=== PATIENT | female | born 1990 | race Caucasian/White ===

== ENCOUNTER 2017-02-12 11:25 | Observation (INO) | payer BC ==
[2017-02-12] VITALS (7 sets, daily range): BP systolic 117–132; BP diastolic 63–77; PULSE 78–92; RESP 16; TEMP 97.3; Ht 157.5 cm; Wt 114.6 kg
[~2017-02-12] VITALS: Ht 157.5 cm; Wt 114.6 kg
[~2017-02-12 11:25] MED LIST: PREN1TAB73 PO
[2017-02-12] MEDS ORDERED: LIDOCAINE 1% (10mg/ml) 2ml SDV ID PRN (12:00)
[2017-02-12 12:27] LABS: BASOPHILS % (AUTO) 0.1 % (0-2); EOSINOPHILS # (AUTO) 0.1 T/MM3 (0-0.5); HCT - HEMATOCRIT 35.6 % (36-46); HGB - HEMOGLOBIN 11.8 GM/DL (12-16); IMMATURE GRANULOCYTE # (AUTO) 0.02 T/MM3 (0.00-0.03); IMMATURE GRANULOCYTE % (AUTO) 0.2 % (0.0-0.5); LYMPHOCYTES # (AUTO) 1.8 T/MM3 (1-4.8); LYMPHOCYTES % (AUTO) 20.6 % (23-45); MEAN CORPUSCULAR HGB 29.6 UUG (26-34); MEAN CORPUSCULAR HGB CONC(MCHC 33.1 GM/DL (31-37); MEAN CORPUSCULAR VOLUME 89.2 UM3 (80-100); MEAN PLATELET VOLUME 9.9 UM3 (9.4-12.4); MONOCYTES # (AUTO) 0.5 T/MM3 (0-0.8); MONOCYTES % (AUTO) 5.9 % (0-9.0); NEUTROPHILS #(AUTO)-ABSOLUTE 6.4 T/MM3 (1.8-7.7); NEUTROPHILS % (AUTO) 72.2 % (33-66); RED BLOOD COUNT 3.99 M/MM3 (4.00-5.20); WBC - WHITE BLOOD COUNT 8.8 T/MM3 (4.5-11.0)
[2017-02-12 12:36] LABS: ALBUMIN 3.6 G/DL (3.5-5.0); ALBUMIN/GLOBULIN RATIO 1.2 RATIO (1.1-2.2); ALKALINE PHOSPHATASE 85 U/L (38-126); ALT (SGPT) 30 U/L (9-52); ANION GAP 14 MEQ/L (5-15); AST (SGOT) 22 U/L (14-36); BUN/CREATININE RATIO 22 RATIO (6-26); CALCIUM 9.5 MG/DL (8.4-10.2); CHLORIDE 108 MEQ/L (98-107); CO2 - CARBON DIOXIDE 20 MEQ/L (22-30); CREATININE 0.5 MG/DL (0.7-1.2); GLOMERULAR FILTRATION RATE 147; GLUCOSE 85 MG/DL (65-110); POTASSIUM 4.1 MEQ/L (3.6-5); SODIUM 142 MEQ/L (134-144); TOTAL PROTEIN 6.7 G/DL (6.3-8.2)
[2017-02-12] MEDS ORDERED: ACET-2321 PO (12:39)
[2017-02-12] MEDS ORDERED: HYDROCODONE/APAP 5 mg/325 mg TABLET PO ONE (13:30)
[2017-02-12] MEDS ORDERED: CYCLOBENZAPRINE 5 MG TABLET PO ONE (15:00)
== END 2017-02-12 15:35 | disposition home or self-care (01) ==
LOC: MC 11:25
PROVIDERS: ADMIT Obstetrics & Gynecology; ATTEND Obstetrics & Gynecology
DX: O26.893 Other specified pregnancy related conditions, third trimester (principal); R03.0 Elevated blood-pressure reading, without diagnosis of hypertension; Z3A.37 37 weeks gestation of pregnancy
CPT/HCPCS: 80053; 85025; 86850; 86870; 86900; 86901; 99218

== ENCOUNTER 2017-02-19 10:03 | Inpatient (IN) | payer BC, MEDICAID ==
[~2017-02-19] VITALS: Ht 157.5 cm; Wt 113.2 kg
[~2017-02-19 10:03] MED LIST changes: +ACET-2321 PO
--- OUTSIDE RECORDS SUMMARY | 2017-02-19 10:29 | XMS REPORT | Continuity of Care Document ---
Author Author [facility] Organization [facility] Address Unknown Phone Unavailable Support Name Relationship Address Phone MASON RICHARDS MD Caregiver [address] [place] [address] Unavailable MASON RICHARDS MD Caregiver [address] [place] [address] Unavailable PATEL GONZALEZ DO Caregiver Unknown Unavailable DAISY SOSA Next Of Kin [address] [place] [address] C Insurance Providers Guarantor Filiberto Sosa Address [address] [place] [address] Email DIRECT ADMIT Payer [facility] Policy Number [id number] Subscriber's Name Filiberto Sosa Relationship 18 Self Group Number [id number] Advance Directives Directive Response Recorded Date/Time Ordered Resuscitation Status Full Code 02/12/17 11:51am Resuscitation Documents on File No 02/12/17 12:30pm DPOA for Healthcare Only No 02/12/17 12:30pm Living Will No 02/12/17 12:30pm Problems Active Problems Medical Problem Onset Date Status Threatened miscarriage in early Unknown Acute Medications Current Home Medications Medication Dose Units Route Directions Days Qty Instructions Start Date Acetaminophen (Tylenol) 325 Mg Tablet 1-2 Tab Oral Four Times Daily 60 Tablet 02/12/17 Pnv95/Ferrous Fumarate/Fa ( Tablet) 1 Each Tablet 1 Tab Oral Daily 02/11/17 Past Home Medications Medication Directions Ordered Status Hydrocodone Bit/Acetaminophen (Lortab 10) 1 Udtab Tablet, 1 Mg Oral As Needed 05/24/10 Discontinued Hydrocodone/Acetaminophen ([place] 5-325 Tablet) 1 Each Tablet, 1 Tab Oral Every 6 Hours as needed for Pain 01/30/16 Discontinued None , 06/01/09 Discontinued Ondansetron (Zofran Odt) 4 Mg Tab.rapdis, 4 Mg Oral Q8h @ 0100/0900/1700 for Nausea &/Or Vomiting 01/30/16 Discontinued P-Ephed Sul/Loratadine (Claritin-D 12 Hour) 1 Tab.sr .12 H Tablet, 1 Tab.sr Oral Daily 06/05/13 Discontinued , 05/24/10 Discontinued Social History Social History Problem Response Recorded Date/Time Onset Date Status Reason for Hospitalization with increased BP 02/12/2017 3:07pm Not Applicable Not Applicable Hx Substance Use No 02/11/2017 9:07am Not Applicable Not Applicable Hx Alcohol Use No 01/30/2016 4:58pm Not Applicable Not Applicable Has the pt used tobacco in the last 12 months No 02/12/2017 12:35pm Not Applicable Not Applicable Tobacco Usage none 01/31/2016 12:38am Not Applicable Not Applicable Query Response Start Date Stop Date Smoking Status Former smoker Hospital Discharge Instructions Instructions: Care Instructions: I was in the hospital because (patient own words): high blood pressure and headache Discharge Diet: regular Discharge Activity: Limited activity. Rest. No screens with headache, such as TV and phone. Follow Up Appointments: Call for an appointment on , February 14, [address] Richards Pending Lab / Results: No Pending Lab Patient Instructions: May use heat pack on neck or muscle rubs to neck Expected Signs/Symptoms: per dismissal instructions Notify Physician If: per dismissal instructions During Business Hours:: Please call the physician's office at [phone] After Business Hours:: Please call [phone] and have the feather drying machine operator page the physician. Pain Management/Treatment: may continue Tylenol Wound/Incision Care: none Condition at time of discharge: Good Plan of Care Discharge Date 02/12/17 3:35pm Disposition 01 DISCHARGED HOME, SELF-CARE Instructions/Education Provided [facility] Prescriptions See Medication Section Care Plan and Goals See Discharge Instructions Section Functional Status Query Response Date Recorded Ability to complete ADL's impeded by No change February 12, 2017 12:30pm Allergies, Adverse Reactions, Alerts Allergen Type Severity Reaction Status Last Updated Amoxicillin Allergy Unknown RASH Active 02/11/17 Immunizations Query Response on File Recorded Date/Time Hx Influenza Vaccination N refused 02/12/17 12:35pm Hx Pneumococcal Vaccination No 02/12/17 12:35pm Hx Influenza Vaccination N refused 02/12/17 12:35pm Influenza Vaccine Hx declined 02/11/17 9:07am Tdap Vaccine Hx 12/20/16 @ [facility] 02/11/17 9:07am Vital Signs Acute Vital Signs Vital Response Date/Time Temperature (Fahrenheit) 97.3 deg F (96.8 - 99.1) 02/12/2017 11:54am Temperature (Calculated Celsius) 36.40638 degrees C (36.0 - 37.3) 02/12/2017 11:54am Pulse Rate (adult) 85 bpm (60 - 100) 02/12/2017 2:42pm Respiratory Rate 16 breaths/min (10 - 20) 02/12/2017 11:54am Blood Pressure 122/63 mm Hg 02/12/2017 2:42pm Blood Pressure Source Automatic Cuff 02/12/2017 2:42pm Height (Feet) 5 feet 02/12/2017 12:29pm Height (Inches) 2.00 inches 02/12/2017 12:29pm Weight (Kilograms) 114.600 kg 02/12/2017 12:29pm Body Mass Index (BMI) 46.2 02/12/2017 12:29pm Results Laboratory Results Test Name Result Units Flags Reference Collection Date/Time Result Date/ Time Comments White Blood Count 8.8 T/MM3 4.5-11.0 02/12/2017 12:06pm 02/12/2017 12: 27pm Red Blood Count 3.99 M/MM3 L 4.00-5.20 02/12/2017 12:06pm 02/12/2017 12: 27pm Hemoglobin 11.8 GM/DL L 12-16 02/12/2017 12:06pm 02/12/2017 12:27pm Hematocrit 35.6 % L 36-46 02/12/2017 12:06pm 02/12/2017 12:27pm Mean Corpuscular Volume 89.2 UM3 80-100 02/12/2017 12:06pm 02/12/2017 12:27pm Mean Corpuscular Hemoglobin 29.6 UUG 26-34 02/12/2017 12:06pm 2016 12:27pm Mean Corpuscular Hemoglobin Concent 33.1 GM/DL 31-37 02/12/2017 12:06pm 02/12/2017 12:27pm RDW Standard Deviation 41.5 FL 36.9-50.2 02/12/2017 12:06pm 02/12/2017 12:27pm Platelet Count 264 T/MM3 130-400 02/12/2017 12:06pm 02/12/2017 12:27pm Mean Platelet Volume 9.9 UM3 9.4-12.4 02/12/2017 12:06pm 02/12/2017 12: 27pm Neutrophils (%) (Auto) 72.2 % H 33-66 02/12/2017 12:06pm 02/12/2017 12: 27pm Lymphocytes (%) (Auto) 20.6 % L 23-45 02/12/2017 12:06pm 02/12/2017 12: 27pm Monocytes (%) (Auto) 5.9 % 0-9.0 02/12/2017 12:06pm 02/12/2017 12:27pm Eosinophils (%) (Auto) 1.0 % 0-4 02/12/2017 12:06pm 02/12/2017 12:27pm Basophils (%) (Auto) 0.1 % 0-2 02/12/2017 12:06pm 02/12/2017 12:27pm Immature Granulocyte % (Auto) 0.2 % 0.0-0.5 02/12/2017 12:06pm 2016 12:27pm Absolute Neutrophils (auto) 6.4 T/MM3 1.8-7.7 02/12/2017 12:06pm 2016 12:27pm Absolute Lymphocytes (auto) 1.8 T/MM3 1-4.8 02/12/2017 12:06pm 2016 12:27pm Absolute Monocytes (auto) 0.5 T/MM3 0-0.8 02/12/2017 12:06pm 2016 12:27pm Absolute Eosinophils (auto) 0.1 T/MM3 0-0.5 02/12/2017 12:06pm 2016 12:27pm Absolute Basophils (auto) 0.0 T/MM3 0-0.2 02/12/2017 12:06pm 2016 12:27pm Absolute Immature Granulocyte (auto 0.02 T/MM3 0.00-0.03 02/12/2017 12: 06pm 02/12/2017 12:27pm Icterus Index < 2 0-7 02/12/2017 12:07pm 02/12/2017 12:36pm Chemistry Specimen Hemolysis 24 0-25 02/12/2017 12:0702/12/2017 12 :36pm 0-25: Specimen Exhibited No Hemolysis. Turbidity < 20 0-20 02/12/2017 12:07pm 02/12/2017 12:36pm Sodium Level 142 MEQ/L 134-144 02/12/2017 12:07pm 02/12/2017 12:36pm Potassium Level 4.1 MEQ/L 3.6-5 02/12/2017 12:07pm 02/12/2017 12:36pm Chloride Level 108 MEQ/L H 98-107 02/12/2017 12:0702/12/2017 12:36pm Carbon Dioxide Level 20 MEQ/L L 22-30 02/12/2017 12:0702/12/2017 12: 36pm Anion Gap 14 MEQ/L 5-15 02/12/2017 12:07pm 02/12/2017 12:36pm Blood Urea Nitrogen 11.0 MG/DL 7-17 02/12/2017 12:07pm 02/12/2017 12: 36pm Creatinine 0.5 MG/DL L 0.7-1.2 02/12/2017 12:07pm 02/12/2017 12:36pm BUN/Creatinine Ratio 22 RATIO 6-26 02/12/2017 12:07pm 02/12/2017 12: 36pm Glomerular Filtration Rate Calc 147 02/12/2017 12:07pm 02/12/2017 12:36pm Glucose Level 85 MG/DL 65-110 02/12/2017 12:07pm 02/12/2017 12:36pm Calculated Osmolality 271 MOSM/KG 261-280 02/12/2017 12:072016 12:36pm Calcium Level 9.5 MG/DL 8.4-10.2 02/12/2017 12:07pm 02/12/2017 12:36pm Total Bilirubin 0.50 MG/DL 0.20-1.30 02/12/2017 12:0702/12/2017 12: 36pm Alkaline Phosphatase 85 U/L 38-126 02/12/2017 12:07pm 02/12/2017 12: 36pm Total Protein 6.7 G/DL 6.3-8.2 02/12/2017 12:07pm 02/12/2017 12:36pm Albumin 3.6 G/DL 3.5-5.0 02/12/2017 12:07pm 02/12/2017 12:36pm Globulin 3.1 G/DL 2.4-3.6 02/12/2017 12:07pm 02/12/2017 12:36pm Albumin/Globulin Ratio 1.2 RATIO 1.1-2.2 02/12/2017 12:07pm 02/12/2017 12:36pm Aspartate Amino Transf (AST/SGOT) 22 U/L 14-36 02/12/2017 12:07pm 02/12 12:36pm Alanine Aminotransferase (ALT/SGPT) 30 U/L 9-52 02/12/2017 12:07pm 09/2017 12:36pm Procedures No known history of procedures. Encounters Encounter Location Arrival/Admit Date Discharge/Depart Date Attending Provider Discharged Inpatient (obs) [facility] 02/12/17 11:25am 02/12/17 3 :35pm MASON RICHARDS MD
[2017-02-19 11:00] LABS: BASOPHILS % (AUTO) 0.1 % (0-2); EOSINOPHILS # (AUTO) 0.1 T/MM3 (0-0.5); HCT - HEMATOCRIT 35.2 % (36-46); HGB - HEMOGLOBIN 11.7 GM/DL (12-16); IMMATURE GRANULOCYTE # (AUTO) 0.02 T/MM3 (0.00-0.03); IMMATURE GRANULOCYTE % (AUTO) 0.3 % (0.0-0.5); LYMPHOCYTES # (AUTO) 1.8 T/MM3 (1-4.8); LYMPHOCYTES % (AUTO) 23.3 % (23-45); MEAN CORPUSCULAR HGB 29.5 UUG (26-34); MEAN CORPUSCULAR HGB CONC(MCHC 33.2 GM/DL (31-37); MEAN CORPUSCULAR VOLUME 88.9 UM3 (80-100); MEAN PLATELET VOLUME 9.9 UM3 (9.4-12.4); MONOCYTES # (AUTO) 0.6 T/MM3 (0-0.8); MONOCYTES % (AUTO) 7.4 % (0-9.0); NEUTROPHILS #(AUTO)-ABSOLUTE 5.4 T/MM3 (1.8-7.7); NEUTROPHILS % (AUTO) 67.9 % (33-66); RED BLOOD COUNT 3.96 M/MM3 (4.00-5.20); WBC - WHITE BLOOD COUNT 7.9 T/MM3 (4.5-11.0)
[2017-02-19 11:06] VITALS: Ht 157.5 cm; Wt 113.2 kg
[2017-02-19 11:08] LABS: ALBUMIN 3.6 G/DL (3.5-5.0); ALBUMIN/GLOBULIN RATIO 1.2 RATIO (1.1-2.2); ALKALINE PHOSPHATASE 102 U/L (38-126); ALT (SGPT) 26 U/L (9-52); ANION GAP 12 MEQ/L (5-15); AST (SGOT) 25 U/L (14-36); BUN/CREATININE RATIO 16 RATIO (6-26); CALCIUM 9.1 MG/DL (8.4-10.2); CHLORIDE 108 MEQ/L (98-107); CO2 - CARBON DIOXIDE 21 MEQ/L (22-30); CREATININE 0.5 MG/DL (0.7-1.2); GLOMERULAR FILTRATION RATE 147; GLUCOSE 74 MG/DL (65-110); POTASSIUM 4.3 MEQ/L (3.6-5); SODIUM 141 MEQ/L (134-144); TOTAL PROTEIN 6.7 G/DL (6.3-8.2)
[2017-02-19] MEDS ORDERED: LIDOCAINE 1% (10mg/ml) 2ml SDV ID ONE (11:30)
[2017-02-19] MEDS ORDERED: LR 1,000 ML IV SCH (11:45)
[2017-02-19 12:13] VITALS: BP 128/70; PULSE 76; RESP 18; TEMP 97.9; O2SAT 97
[2017-02-19] MEDS ORDERED: LR 1,000 ML IV PRN ×2 (12:15→15:43)
--- NOTE | 2017-02-19 12:16 | PNPDOC ---
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 She denies any BP Sx. Ctx started last night, and she's having lots of pain in her hip and lower abdomen. She thinks they have gotten stronger since being here. Objective Vitals BPs have been normal on MC. Laboratory Item Value Date Time Hemoglobin 11.7 GM/DL L 02/19/17 1053 Platelet Count 261 T/MM3 02/19/17 1053 Creatinine 0.5 MG/DL L 02/19/17 1053 Aspartate Amino Transf (AST/SGOT) 25 U/L 02/19/17 1053 Alanine Aminotransferase (ALT/SGPT) 26 U/L 02/19/17 1053 Objective Comments Cvx FT/50/high Ramona Q2-6, mild FHT 120 reactive (1) 38 weeks gestation of Assessment & Plan: Her BPs have normalized and labs are normal for . (2) Previous delivery affecting (3) Threatened labor at term Assessment & Plan: Continued observation for now. Getting IV fluids now. MASON RICHARDS MD Feb 19, 2017 12:16
[2017-02-19] MEDS ORDERED: HYDROCODONE/APAP 5 mg/325 mg TABLET PO PRN (12:30)
--- NOTE | 2017-02-19 12:32 | NUR ---
Pain Lortab 5/325 mg 2 tabs po given for discomfort per Dr. Sánchez. Rates pain at 610
--- NOTE | 2017-02-19 13:32 | NUR ---
Pain Still rates cxt pain at 04/13. States "Lortab has not helped at all"
--- NOTE | 2017-02-19 14:12 | NUR ---
C/S Scheduling the C/S for [address] Sánchez. Inpatient as of 141
[2017-02-19] MEDS ORDERED: FAMOTIDINE 20mg IVPB 50 ML IV ONE (15:45)
[2017-02-19] MEDS ORDERED: LIDOCAINE 1% (10mg/ml) 2ml SDV ID PRN (15:45)
[2017-02-19] MEDS ORDERED: NOZIN NASAL SWAB NS PRN (15:45)
[2017-02-19] MEDS ORDERED: CITRIC ACID/SODIUM CITRATE 30 ML PO ONE (15:45)
[2017-02-19] MEDS ORDERED: CEFAZOLIN 2 GM in D5W 50ml 50 ML IV ONE (15:45)
--- NOTE | 2017-02-19 16:32 | ANESPREOP ---
Anesthesia Record Date and Time DATE: 02/19/17 TIME: 16:30 Pre-Op Diagnosis 38 wk previous HTN Proposed Surgical Procedure C-seciton NPO since: 0700 Allergies: Coded Allergies: amoxicillin (Verified Allergy, Unknown, RASH, 02/11/17) Ht/Wt/BMI Height: 5 ' 2.00 " Weight: 113.200 kg BMI: 45.7 kg/m2 Vital Signs Date Time Temp Pulse Resp B/P Pulse Ox O2 Delivery O2 Flow Rate FiO2 02/19/17 12:13 97.9 76 18 128/70 97 Room Air Medications Inpatient Medications Current Medications Medications (Trade) Dose Ordered Sig/Ray Start Time Stop Time Status Last Admin Dose Admin Lactated Ringer's 1,000 ml @ 150 mls/hr Q6H40M PRN 02/19/17 12:15 02/19/17 16:04 150 MLS/HR Lactated Ringer's (Lactated Ringers) 1,000 ml @ 1,000 mls/hr Q1H 02/19/17 11:45 02/19/17 12:14 DC 02/19/17 11:45 1,000 MLS/HR Acetaminophen/ Hydrocodone Bitart Do not exceed 10 tabs in... Q4H PRN 02/19/17 12:30 02/19/17 12:32 2 TAB Lactated Ringer's (Lactated Ringers) 1,000 ml @ 150 mls/hr Q6H40M PRN 02/19/17 15:43 Lidocaine HCl (Xylocaine 1%) 0.2 mg PRN PRN 02/19/17 15:45 Multi-Ingredient Antiseptic (Nozin Nasal Swab) 3 each PREOP PRN 02/19/17 15:45 Acetaminophen (Tylenol) 325 Mg Tablet, 1-2 TAB PO QID, (Reported) Last Taken: on 01/19/17 1200 Pnv95/Ferrous Fumarate/FA ( Tablet) 1 Each Tablet, 1 TAB PO DAILY, (Reported) Last Taken: on 02/11/17 0800 Currently on Beta Hector: No Medical/Surgical History Anesthesia PMH: Reports: *Diabetes (gestational ), *Dyspnea (FROM ALLERGIES AND ), *Hypertension (with pregnancies), Headaches (LAST FEW DAYS. 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 smoked today?: No Use Chewing Tobacco?: No Second Hand Exposure: No Substance Use Type: does not use Alcohol Intake: none Past Surgical History Orthopedic Surgeries: No Abdominal Surgeries: Yes - C/S x 2 Genitourinary Surgeries: No Cardiac Surgeries: No Endocrine Surgeries: No Reproductive Surgeries: Yes - C/S x 2 Neurological Surgeries: No Ear Surgeries: No Nose Surgeries: No Throat Surgeries: No Other Surgeries: - emergency appendectomy Anesthesia Adverse Reactions: FOUND none Family Hx of Anesthesia Advers: none Pertinent Findings Laboratory Tests 02/19/17 10:53 EKG Rhythm: Sinus Rhythm Physical Exam Respiratory: Lungs clear Cardiovascular: FOUND Regular rate, rhythm, FOUND No murmur Airway Assessment Mallampati Score: III TMD: 3 Fingerbreadths Neck Extension: Good Teeth: Chipped Teeth/Crowns Overall Assessment: May Be Diff Intubation ASA: 2 Plan Regional: Spinal Discussion Discussed risks/options/alternatives of anesthesia and questions answered. Patient consents. Nursing pain assessment noted. Present: Children, Spouse Attestation Statement Prior to the delivery of any anesthetic medication, I examined the patient, developed the plan, obtained the patient's consent and discussed the risk and benefits of the procedure with the patient/guardian. MAYCO OLIVER I TITLE ONE READING TEACHER Feb 19, 2017 16:32
[2017-02-19] MEDS ORDERED: FENTANYL 100mcg/2ml INJECTION ONE (16:41)
[2017-02-19] MEDS ORDERED: MORPHINE SULFATE PF 5mg/10ml VL (DURAMORPH) ONE (16:41)
[2017-02-19] MEDS ORDERED: PHENYLEPHRINE 10mg/ml INJECTION ONE (16:42)
[2017-02-19] MEDS ORDERED: EPHEDRINE SULFATE 50mg/ml INJECTION ONE (16:42)
[2017-02-19] MEDS ORDERED: ONDANSETRON 4mg/2ml INJECTION ONE (18:04)
[2017-02-19] MEDS ORDERED: OXYTOCIN 30 UNIT in D5LR 500 ML IV SCH (18:24)
[2017-02-19] MEDS ORDERED: NALBUPHINE 10mg/ml INJECTION IV PRN (18:30)
[2017-02-19] MEDS ORDERED: METOCLOPRAMIDE 10mg/2ml INJECTION IV PRN (18:30)
[2017-02-19] MEDS ORDERED: CALCIUM CARBONATE 500mg Chewable TAB PO PRN (18:30)
[2017-02-19] MEDS ORDERED: DiphenhydrAMINE 50 MG/ML INJECTION IV PRN (18:30)
[2017-02-19] MEDS ORDERED: NALOXONE 0.4mg/ml INJECTION IV PRN (18:30)
[2017-02-19] MEDS ORDERED: MILK OF MAGNESIA 30 ML SUSP PO PRN (18:30)
[2017-02-19] MEDS ORDERED: ONDANSETRON 4mg/2ml INJECTION IV PRN (18:30)
[2017-02-19] MEDS ORDERED: ACETAMINOPHEN 500 MG TABLET PO PRN (18:30)
[2017-02-19] MEDS ORDERED: DiphenhydrAMINE 25 MG CAPSULE PO PRN (18:30)
[2017-02-19] MEDS ORDERED: HYDROCORTISONE 2.5% CREAM 30 GM RECTALLY PRN (18:30)
[2017-02-19] MEDS: SIMETHICONE 80 MG CHEWABLE TABLET PO CHEW SCH ×2 (18:30→23:20)
[2017-02-19 18:35] VITALS: RESP 18; O2SAT 99
--- NOTE | 2017-02-19 18:38 | OPNOTEPD ---
Operative Note Date of Operation Date of Operation: 02/19/17 General : 4 Para: 2 Gestation (Weeks): 38 Gestation (Days): 0 Preoperative Diagnosis Previous section Breech Prolonged latent phase Postoperative Diagnosis Same as preoperative dx Procedure Repeat, Low-transverse Surgeon Madonna Richards MD Hogshead Weigher Edelmira Munoz MD Anesthesia Anesthesia Provider: Duran Keen CRNA Anesthesia Type: spinal Complications No Complications: No complications Estimated Blood Loss 1000 Findings viable female, clear fluids, normal uterus, normal adenexa Lamonte breech APGARS 8,9 Weight 3768 Name Natalie Indications Patient starting having contractions last evening every 4-5 minutes. She was sent to Maternal-Child for observation. They continued to get stronger and closer together over the day despite IV hydration and [place]. The decision was made to proceed with her . Description of Procedure The patient was taken to the operating room where anesthesia was obtained . She was placed in the dorsal supine position with a leftward tilt. A Crane catheter was placed . She was prepared and draped in the normal sterile fashion. A Pfannenstiel incision was made through her previous incision and carried down to the fascia. The fascia was incised in the midline with the scalpel and then extended laterally with the Alegre scissors. The fascia was elevated, and the underlying rectus muscles were dissected off. The peritoneum was entered bluntly. This was extended superiorly and inferiorly with good visualization of the bladder. There were mild omental adhesions to the peritoneum that were taken down. The bladder blade was inserted. A bladder flap was created sharply. The lower uterine segment was incised in a transverse fashion [id number] with the scalpel and bluntly extended. The membranes were ruptured. The breech was deeply wedged in the pelvis and was difficult to deliver through the uterus due to scarring in the different layers. The breech was delivered up to the level of the scapula after extending the fascial incision. The arms were swept down and out. The body was lifted, and the head delivered atraumatically. The nose and mouth were suctioned. The cord was clamped and cut. The was handed to Dr. Marquis who was asked to attend the delivery due to breech. The placenta delivered spontaneously. The uterus was exteriorized and cleared of all clots and debris. She was found to have an inferior midline extension of the incision. This was repaired with running locked 0-monocyl. The uterus was then closed with running locked 0-monocryl. Hemostasis was obtained on the serosal edges with cautery. The uterus was returned to the abdomen. The gutters were cleared of all clots and debris. The uterine incision was inspected one final time and still noted to be hemostatic. The peritoneum was closed with running 2-0 vicryl. Hemostasis was obtained in the rectus muscles with the cautery. The fascia was closed with running 0-vicryl. Hemostasis was obtained in the subcutaneous tissue with the cautery. The deep tissue was closed with running 2-0 chromic. The skin was closed with angela. Sponge, sharp, and instrument counts were correct. The patient tolerated the procedure well and was taken to the recovery room in good condition. MADONNA RICHARDS MD Feb 19, 2017 18:37
[2017-02-19] MEDS ORDERED: METHYLERGONOVINE 0.2mg/ml INJECTION IM ONE (19:30)
--- NOTE | 2017-02-19 19:31 | NUR ---
Dr. Ryann Munoz notified of pt's bleeding, several golf ball sized clots passed, and fundus firm. Verbal orders to admin. Methergine IM.
[2017-02-19] MEDS: IBUPROFEN 800 MG TABLET PO PRN (19:47)
--- NOTE | 2017-02-19 20:22 | ANESPO ---
Post-Op Note Date 02/19/17 Time: 20:22 Status Pt Participated in Evaluation: Pt participated in person Vital Signs Date Time Temp Pulse Resp B/P Pulse Ox O2 Delivery O2 Flow Rate FiO2 02/19/17 12:13 97.9 76 18 128/70 97 Room Air Respiratory Function: Airway patent, Regular respirations Cardiovascular Function: Regular pulse Mental Status: Alert/oriented Pain Level Intensity: 4 Hydration: Taking po fluids Complications during Recovery None apparent Follow-Up Instructions Instructions Per Surgeon MAYCO OLIVER CRNA Feb 19, 2017 20:22
[2017-02-19] MEDS: HYDROCODONE/APAP 5 mg/325 mg TABLET PO PRN (20:57)
[2017-02-19 22:48] VITALS: RESP 18; O2SAT 98
[2017-02-19 23:37] VITALS: BP 130/83; PULSE 72; RESP 18; TEMP 97.9; O2SAT 97
[2017-02-19] MEDS: D5LR 1,000 ML IV SCH (23:41)
--- NOTE | 2017-02-20 | NUR ---
Progress Note Pt dangled, stood at bedside, and ambulated to sink with RN supervision and denied dizziness. Skin care, pericare, and catheter care provided. Underpad and pad changed. Side rails up X2 and call avila in reach. Will continue to monitor per plan of care.
--- NOTE | 2017-02-20 01:15 | NUR ---
Chart Check 24 hour chart check completed
--- NOTE | 2017-02-20 01:15 | NUR ---
Shift Summary Pt's VS stable. Fundus firm, small to moderate lochia during recovery. Methergine admin. IM x1 as ordered. Crane in and patent. Pitocin @ 50mls/hr and D5LR @ 100mls/hr. Pt tolerating po fluids. Pain controlled with po pain meds as ordered, Motrin and [place]. Abdominal binder on. O2 oximeter on. SCD's on thigh high bilaterally. Side rails up X2 and call avila in reach. Will continue to monitor per plan of care.
[2017-02-20 01:27] LABS: HCT - HEMATOCRIT 30.9 % (36-46); HGB - HEMOGLOBIN 10.4 GM/DL (12-16); MEAN CORPUSCULAR HGB 29.6 UUG (26-34); MEAN CORPUSCULAR HGB CONC(MCHC 33.7 GM/DL (31-37); MEAN PLATELET VOLUME 9.6 UM3 (9.4-12.4); RED BLOOD COUNT 3.51 M/MM3 (4.00-5.20); WBC - WHITE BLOOD COUNT 10.9 T/MM3 (4.5-11.0)
[2017-02-20 02:42] VITALS: BP 122/63; PULSE 70; RESP 18; TEMP 98.1; O2SAT 98
[2017-02-20] MEDS: HYDROCODONE/APAP 5 mg/325 mg TABLET PO PRN ×3 (02:50→19:54)
[2017-02-20] MEDS: D5LR 1,000 ML IV SCH ×2 (04:24→14:24)
[2017-02-20 05:57] VITALS: BP 117/63; PULSE 67; RESP 16; TEMP 97.9; O2SAT 100
[2017-02-20] MEDS: IBUPROFEN 800 MG TABLET PO PRN (06:09)
[2017-02-20 09:58] VITALS: BP 135/65; PULSE 84; RESP 18; TEMP 97.9; O2SAT 98
[2017-02-20] MEDS: SIMETHICONE 80 MG CHEWABLE TABLET PO CHEW SCH ×4 (10:20→22:17)
[2017-02-20] MEDS: DOCUSATE CALCIUM 240 MG CAPSULE PO SCH (10:20)
--- NOTE | 2017-02-20 12:03 | PNPDOC ---
Progress Note PPD1 Rubella: Immune GBS: Negative Blood Type:A pos Subjective 02/20/17 Lochia: Minimal Pain: Controlled Voiding: Voiding Nausea and Vomiting: No Nausea/Vomiting She's feeling much better than yesterday. Objective Vital Signs Date Time Temp Pulse Resp B/P Pulse Ox O2 Delivery O2 Flow Rate FiO2 02/20/17 09:58 97.9 84 18 135/65 98 Room Air Urine Output: Good General: Alert and Oriented Abdomen: Fundus Firm, Non-tender, Soft, Non-distended Incision: Clean/Dry/Intact, No Erythema Extremities: Non-tender Laboratory Item Value Date Time Hemoglobin 10.4 GM/DL L # 02/20/17 0121 Assessment (1) Status post repeat low transverse section Plan: Routine Care MASON RICHARDS MD Feb 20, 2017 12:03
--- NOTE | 2017-02-20 12:31 | NUR ---
Abdominal Pain: RN was called to the room and pt was experiencing some RUQ pain and pain up into her neck. No nausea or dizziness. She sais she had been pumping and feeding and then this pain started after Dr. Sánchez left. She then proceeded to say that she might be having a mild panic attack due to what Dr. Sánchez said about C/S. The fan was turned on and a cold wash cloth was placed on her neck. The pt then proceeded to say so has had a panic attack in the past and that maybe this is what it is. She then felt up to walking in the halls and "getting out the this room." Pt ambulated in the halls and pushed bassinet with infant in it. No nausea or dizziness. Symptoms have subsided.
--- NOTE | 2017-02-20 13:31 | NUR ---
Shift Summary: Pt has done well today. She has been up ambulating in the halls. VSS, bleeding minimal, no dizziness or nausea. Crane Catheter DC'd, pt has voided. Pain is controlled with oral pain meds. This afternoon she has had some gas pain and has been walking and using a warm rice pack. Mother is vigorous with attempting to breastfeed every 2-3 hours. Her nipples are somewhat flat and slides off easily. She has pumped and also given a bottle of EBM. present and supportive. Family is resting comfortably at this time.
[2017-02-20 14:07] VITALS: BP 131/69; PULSE 94; RESP 20; TEMP 98.2; O2SAT 97
[2017-02-20 18:00] VITALS: BP 115/77; PULSE 81; RESP 16; TEMP 97.7; O2SAT 99
[2017-02-20 22:00] VITALS: BP 117/63; PULSE 91; RESP 16; TEMP 98.2; O2SAT 98
[2017-02-21] MEDS: D5LR 1,000 ML IV SCH ×2 (00:24→10:24)
[2017-02-21 02:00] VITALS: BP 132/81; PULSE 78; RESP 16; TEMP 97.6; O2SAT 98
[2017-02-21] MEDS: HYDROCODONE/APAP 5 mg/325 mg TABLET PO PRN ×3 (02:01→13:07)
[2017-02-21] MEDS: IBUPROFEN 800 MG TABLET PO PRN ×2 (02:01→13:06)
--- NOTE | 2017-02-21 02:20 | NUR ---
Shift summary: VSS. Pt. is up ad amita and performing self cares. Pt. reports small bleeding. Pt. showered this shift. Incision is asymptomatic and open to air. IV DC'd. Pt. is voiding and tolerating regular diet. Pt. complained of gas pain earlier this shift. Warmed rice bag and oral pain meds given. Pain controlled with interventions. supportive and at bedside most of the shift.
[2017-02-21 06:33] VITALS: BP 128/63; PULSE 65; RESP 16; TEMP 97.8; O2SAT 99
--- NOTE | 2017-02-21 08:26 | PNPDOC ---
Progress Note PPD2 Rubella: Immune GBS: Negative Blood Type:A pos Subjective 02/21/17 Lochia: Minimal Pain: Controlled Voiding: Voiding Objective Vital Signs Date Time Temp Pulse Resp B/P Pulse Ox O2 Delivery O2 Flow Rate FiO2 02/21/17 06:33 97.8 65 16 128/63 99 Room Air General: Alert and Oriented Abdomen: Soft, Non-distended Incision: Clean/Dry/Intact, No Erythema Extremities: Non-tender Assessment (1) Status post repeat low transverse section Assessment & Plan: Office tomorrow for staple removal. Plan: Routine Care, Discharge Home, Continue PNV MASON RICHARDS MD Feb 21, 2017 08:26
[2017-02-21] MEDS ORDERED: HYDR-4246 PO (08:27)
[2017-02-21] MEDS ORDERED: IBUP-1547 PO (08:27)
[2017-02-21] MEDS: DOCUSATE CALCIUM 240 MG CAPSULE PO SCH (09:01)
[2017-02-21] MEDS: SIMETHICONE 80 MG CHEWABLE TABLET PO CHEW SCH ×2 (09:01→13:06)
[2017-02-21 09:02] VITALS: BP 126/80; PULSE 83; RESP 16; TEMP 97.7; O2SAT 98
[2017-02-21 12:58] VITALS: BP 144/74; PULSE 88; RESP 16; TEMP 97.5; O2SAT 97
[2017-02-21 14:17] VITALS: BP 135/75
[2017-02-21 17:43] VITALS: BP 135/73; PULSE 75; RESP 18
== END 2017-02-21 17:50 | disposition home or self-care (01) | DRG 766 ==
LOC: MC 10:03 → UNDOADMIN 10:03 → MC 10:03 → OBOBS 10:03 → MC 10:24 → EDSTATUS 03-01 07:30
PROVIDERS: ADMIT Obstetrics & Gynecology; ATTEND Obstetrics & Gynecology
PROC: 10D00Z1 Extraction of Products of Conception, Low, Open Approach (ICD-10-PCS; principal; 2017-02-19 17:35)
DX: O63.0 Prolonged first stage (of labor) (principal); O34.211 Maternal care for low transverse scar from previous cesarean delivery; N85.8 Other specified noninflammatory disorders of uterus; O32.1XX0 Maternal care for breech presentation, not applicable or unspecified; O99.344 Other mental disorders complicating childbirth; F41.9 Anxiety disorder, unspecified; Z3A.38 38 weeks gestation of pregnancy; Z37.0 Single live birth
CPT/HCPCS: 36415; 80053; 85025; 85027; 86850; 86870; 86900; 86901

== ENCOUNTER 2017-02-26 11:54 | Observation (INO) | payer MEDICAID ==
[~2017-02-26] VITALS: Ht 157.5 cm; Wt 109.2 kg
[~2017-02-26 11:54] MED LIST changes: +HYDR-4246 PO; +IBUP-1547 PO
--- NOTE | 2017-02-26 13:56 | NUR ---
ARRIVED PT ARRIVED TO ROOM 115 AT THIS TIME VIA WHEELCHAIR. PT SETTLED INTO ROOM AT THIS TIME.
--- OUTSIDE RECORDS SUMMARY | 2017-02-26 14:19 | XMS REPORT | Continuity of Care Document ---
Author Author [facility] Organization [facility] Address Unknown Phone Unavailable Support Name Relationship Address Phone MASON RICHARDS MD Caregiver [address] [place] [address] Unavailable MASON RICHARDS MD Caregiver [address] [place] [address] Unavailable PATEL GONZALEZ DO Caregiver Unknown Unavailable DAISY SOSA Next Of Kin [address] [place] [address] C Insurance Providers Guarantor Filiberto Sosa Address [address] [place] [address] Email DIRECT ADMIT Payer [facility] Policy Number [id number] Subscriber's Name Filiberto Sosa Relationship 18 Self Group Number [id number] Advance Directives Directive Response Recorded Date/Time Ordered Resuscitation Status Full Code 02/19/17 10:44am Resuscitation Documents on File full code 02/19/17 12:13pm DPOA for Healthcare Only No 02/19/17 12:13pm Living Will No 02/19/17 12:13pm Advanced Directive or Resuscitation Comments full code 02/19/17 12:13pm Problems Active Problems Medical Problem Onset Date Status 38 weeks gestation of Unknown Threatened labor at term Unknown Threatened miscarriage in early Unknown Acute Surgical Problem Onset Date Status Previous delivery affecting Unknown Status post repeat low transverse section Unknown Medications Current Home Medications Medication Dose Units Route Directions Days Qty Instructions Start Date Acetaminophen (Tylenol) 325 Mg Tablet 1-2 Tab Oral Four Times Daily 60 Tablet 02/12/17 Hydrocodone/Acetaminophen ([place] 5-325 Tablet) 5-325 Tablet 1-2 Tab Oral Every 4 Hours as needed for Pain 40 Tablet 02/21/17 Ibuprofen 800 Mg Tablet 800 Mg Oral Every 8 Hours as needed for Pain 30 Tablet 02/21/17 Pnv95/Ferrous Fumarate/Fa ( Tablet) 1 Each Tablet 1 Tab Oral Daily 02/11/17 Past Home Medications Medication Directions Ordered Status Hydrocodone Bit/Acetaminophen (Lortab 10) 1 Udtab Tablet, 1 Mg Oral As Needed 05/24/10 Discontinued Hydrocodone/Acetaminophen ([place] 5-325 Tablet) 1 Each Tablet, 1 Tab [...] Date/Time Onset Date Status Reason for Hospitalization 02/21/2017 2:43pm Not Applicable Not Applicable Hx Substance Use No 02/19/2017 12:13pm Not Applicable Not Applicable Hx Alcohol Use No 01/30/2016 4:58pm Not Applicable Not Applicable Has the pt used tobacco in the last 12 months No 02/19/2017 12:13pm Not Applicable Not Applicable Tobacco Usage none 01/31/2016 12:38am Not Applicable Not Applicable Query Response Start Date Stop Date Smoking Status Former smoker Hospital Discharge Instructions Instructions: Care Instructions: Reason for Hospitalization: I was in the hospital because (patient own words): to see if I'm having a c/section today Discharge Diet: Regular Discharge Activity: See instructions handout Follow Up Appointments: Clinic tomorrow for staple removal with the nurses. Dr. Richards on March 06 at 1:50pm Pending Lab / Results: Will review at f/u apt Wound/Incision Care: See PP instructions handout Pain Scale Utilized to Educate Patient: 0-10 Pain Scale Pain Management/Treatment: [place] Ibuprofen Expected Signs/Symptoms: See instructions handout Notify Physician If: See instructions handout During Business Hours:: Call [phone] After Business Hours:: Call [phone] ([facility] [place] Condition at time of discharge: Good Plan of Care Discharge Date 02/21/17 5:50pm Disposition 01 DISCHARGED HOME, SELF-CARE Instructions/Education Provided MC Delivery Prescriptions See Medication Section Care Plan and Goals See Discharge Instructions Section Functional Status Query Response Date Recorded Mobility Status Ambulatory February 21, 2017 2:43pm Assistive Devices None February 21, 2017 2:43pm Activity Limitations None February 21, 2017 2:43pm Feeding Ability Independent February 21, 2017 2:43pm Toileting Ability Independent February 21, 2017 2:43pm Grooming Ability Independent February 21, 2017 2:43pm Dressing Ability Independent February 21, 2017 2:43pm Driving Ability Independent February 21, 2017 2:43pm Housework Ability Independent February 21, 2017 2:43pm Meal Preparation Ability Independent February 21, 2017 2:43pm Stair Climbing Ability Independent February 21, 2017 2:43pm Ability to complete ADL's impeded by No change February 21, 2017 2:43pm Cognitive/Perceptual Impairments None February 21, 2017 2:43pm Preferred Method of Learning Hands on February 19, 2017 5:03pm Allergies, Adverse Reactions, Alerts Allergen Type Severity Reaction Status Last Updated Amoxicillin Allergy Unknown RASH Active 02/11/17 Immunizations Query Response on File Recorded Date/Time Hx Influenza Vaccination No 02/19/17 12:07pm Hx Pneumococcal Vaccination No 02/19/17 12:07pm Hx Influenza Vaccination No 02/19/17 12:07pm Influenza Vaccine Hx declined 02/19/17 12:13pm Tdap Vaccine Hx 12/20/16 @ [facility] 02/19/17 12:13pm Vital Signs Acute Vital Signs Vital Response Date/Time Temperature (Fahrenheit) 97.5 deg F (96.8 - 99.1) 02/21/2017 12:58pm Temperature (Calculated Celsius) 36.17727 degrees C (36.0 - 37.3) 02/21/2017 12:58pm Pulse Rate (adult) 75 bpm (60 - 100) 02/21/2017 5:43pm Respiratory Rate 18 breaths/min (10 - 20) 02/21/2017 5:43pm O2 Sat by Pulse Oximetry 97 % (90 - 100) 02/21/2017 12:58pm Oxygen Delivery Method Room Air 02/21/2017 12:58pm Blood Pressure 135/73 mm Hg 02/21/2017 5:43pm Blood Pressure Source Automatic Cuff 02/21/2017 5:43pm Height (Feet) 5 feet 02/19/2017 12:13pm Height (Inches) 2.00 inches 02/19/2017 12:13pm Weight (Kilograms) 113.200 kg 02/19/2017 12:13pm Body Mass Index (BMI) 45.7 02/19/2017 11:06am Results Laboratory Results Test Name Result Units Flags Reference Collection Date/Time Result Date/ Time Comments White Blood Count 10.9 T/MM3 4.5-11.0 02/20/2017 1:02/20/2017 2: 03am Red Blood Count 3.51 M/MM3 L 4.00-5.20 02/20/2017 1:02/20/2017 2: 03am Hemoglobin 10.4 GM/DL D L 12-16 02/20/2017 1:02/20/2017 2:03am Hematocrit 30.9 % D L 36-46 02/20/2017 1:02/20/2017 2:03am Mean Corpuscular Volume 88.0 UM3 80-100 02/20/2017 1:02/20/2017 2: 03am Mean Corpuscular Hemoglobin 29.6 UUG 26-34 02/20/2017 1:2016 2:03am Mean Corpuscular Hemoglobin Concent 33.7 GM/DL 31-37 02/20/2017 1:02/20/2017 2:03am RDW Standard Deviation 39.3 FL 36.9-50.2 02/20/2017 1:02/20/2017 2 :03am Platelet Count 238 T/MM3 130-400 02/20/2017 1:02/20/2017 2:03am Mean Platelet Volume 9.6 UM3 9.4-12.4 02/20/2017 1:02/20/2017 2: 03am Neutrophils (%) (Auto) 67.9 % H 33-66 02/19/2017 10:53am 02/19/2017 11: 00am Lymphocytes (%) (Auto) 23.3 % 23-45 02/19/2017 10:53am 02/19/2017 11: 00am Monocytes (%) (Auto) 7.4 % 0-9.0 02/19/2017 10:53am 02/19/2017 11:00am Eosinophils (%) (Auto) 1.0 % 0-4 02/19/2017 10:53am 02/19/2017 11:00am Basophils (%) (Auto) 0.1 % 0-2 02/19/2017 10:53am 02/19/2017 11:00am Immature Granulocyte % (Auto) 0.3 % 0.0-0.5 02/19/2017 10:53am 2016 11:00am Absolute Neutrophils (auto) 5.4 T/MM3 1.8-7.7 02/19/2017 10:53am 2016 11:00am Absolute Lymphocytes (auto) 1.8 T/MM3 1-4.8 02/19/2017 10:53am 2016 11:00am Absolute Monocytes (auto) 0.6 T/MM3 0-0.8 02/19/2017 10:53am 2016 11:00am Absolute Eosinophils (auto) 0.1 T/MM3 0-0.5 02/19/2017 10:53am 2016 11:00am Absolute Basophils (auto) 0.0 T/MM3 0-0.2 02/19/2017 10:53am 2016 11:00am Absolute Immature Granulocyte (auto 0.02 T/MM3 0.00-0.03 02/19/2017 10: 53am 02/19/2017 11:00am Icterus Index < 2 0-7 02/19/2017 10:53am 02/19/2017 11:08am Chemistry Specimen Hemolysis 42 H 0-25 02/19/2017 10:53am 02/19/2017 11:08am 26-70: Specimen Exhibited Slight Hemolysis - can falsely elevate K (Potassium) and Urine Protein. Turbidity < 20 0-20 02/19/2017 10:53am 02/19/2017 11:08am Sodium Level 141 MEQ/L 134-144 02/19/2017 10:53am 02/19/2017 11:08am Potassium Level 4.3 MEQ/L 3.6-5 02/19/2017 10:53am 02/19/2017 11:08am Chloride Level 108 MEQ/L H 98-107 02/19/2017 10:53am 02/19/2017 11:08am Carbon Dioxide Level 21 MEQ/L L 22-30 02/19/2017 10:53am 02/19/2017 11: 08am Anion Gap 12 MEQ/L 5-15 02/19/2017 10:53am 02/19/2017 11:08am Blood Urea Nitrogen 8.0 MG/DL 7-17 02/19/2017 10:53am 02/19/2017 11: 08am Creatinine 0.5 MG/DL L 0.7-1.2 02/19/2017 10:53am 02/19/2017 11:08am BUN/Creatinine Ratio 16 RATIO 6-26 02/19/2017 10:53am 02/19/2017 11: 08am Glomerular Filtration Rate Calc 147 02/19/2017 10:53am 02/19/2017 11:08am Glucose Level 74 MG/DL 65-110 02/19/2017 10:53am 02/19/2017 11:08am Calculated Osmolality 268 MOSM/KG 261-280 02/19/2017 10:53am 2016 11:08am Calcium Level 9.1 MG/DL 8.4-10.2 02/19/2017 10:53am 02/19/2017 11:08am Total Bilirubin 0.60 MG/DL 0.20-1.30 02/19/2017 10:53am 02/19/2017 11: 08am Alkaline Phosphatase 102 U/L 38-126 02/19/2017 10:53am 02/19/2017 11: 08am Total Protein 6.7 G/DL 6.3-8.2 02/19/2017 10:53am 02/19/2017 11:08am Albumin 3.6 G/DL 3.5-5.0 02/19/2017 10:53am 02/19/2017 11:08am Globulin 3.1 G/DL 2.4-3.6 02/19/2017 10:53am 02/19/2017 11:08am Albumin/Globulin Ratio 1.2 RATIO 1.1-2.2 02/19/2017 10:53am 02/19/2017 11:08am Aspartate Amino Transf (AST/SGOT) 25 U/L 14-36 02/19/2017 10:53am 02/19 11:08am Alanine Aminotransferase (ALT/SGPT) 26 U/L 9-52 02/19/2017 10:53am 11:08am Procedures Procedure Status Date Provider(s) Comprehen metabolic panel Completed 02/12/17 Complete cbc w/auto diff wbc Completed 02/12/17 Rbc antibody screen Completed 02/12/17 Rbc antibody identification Completed 02/12/17 Blood typing serologic abo Completed 02/12/17 Blood typing serologic rh(d) Completed 02/12/17 Initial observation care Completed 02/12/17 Initial observation care Completed 02/12/17 section Completed 02/19/17 MASON RICHARDS MD Encounters Encounter Location Arrival/Admit Date Discharge/Depart Date Attending Provider Discharged Inpatient [facility] 02/19/17 10:24am 02/21/17 5:50pm MASON RICHARDS MD Discharged Inpatient (obs) [facility] 02/12/17 11:25am 02/12/17 3 :35pm MASON RICHARDS MD
[2017-02-26 14:20] VITALS: Ht 157.5 cm; Wt 109.2 kg
--- NOTE | 2017-02-26 14:22 | NUR ---
PROVIDER IN ROOM MARLI COVARRUBIAS IN ROOM TO VISIT WITH THE PATIENT.
[2017-02-26 14:26] VITALS: BP 137/87; PULSE 56; RESP 26; TEMP 98.4; O2SAT 98
[2017-02-26] MEDS ORDERED: NORMAL SALINE 100 ML ONE (14:37)
[2017-02-26] MEDS ORDERED: SALINE FLUSH 10ml SYRINGE ONE ×2 (14:37→15:29)
[2017-02-26] MEDS ORDERED: IOHEXOL 350 MG/ML 100ml INJECTION ONE (14:37)
[2017-02-26] MEDS ORDERED: SALINE FLUSH 10ml SYRINGE IVF PRN (14:45)
[2017-02-26 14:53] LABS: BLOOD, URINE 3+ (NEGATIVE); COLOR,URINE YELLOW (YELLOW); LEUKOCYTE ESTERASE ,URINE NEGATIVE (NEGATIVE); NITRITE,URINE NEGATIVE (NEGATIVE); UROBILINOGEN,URINE 0.2 EU/DL (NORMAL)
[2017-02-26 15:00] VITALS: PULSE 56; RESP 21
[2017-02-26] MEDS ORDERED: IOHEXOL 350 MG/ML 75ml INJECTION ONE (15:00)
--- NOTE | 2017-02-26 15:00 | NUR ---
UPDATE DR PLATT AT BEDSIDE ASSESSING PT.
[2017-02-26 15:05] LABS: BASOPHILS % (AUTO) 0.4 % (0-2); EOSINOPHILS # (AUTO) 0.3 T/MM3 (0-0.5); EOSINOPHILS % (AUTO) 3.4 % (0-4); HCT - HEMATOCRIT 30.5 % (36-46); HGB - HEMOGLOBIN 9.8 GM/DL (12-16); IMMATURE GRANULOCYTE # (AUTO) 0.05 T/MM3 (0.00-0.03); IMMATURE GRANULOCYTE % (AUTO) 0.6 % (0.0-0.5); LYMPHOCYTES # (AUTO) 1.9 T/MM3 (1-4.8); LYMPHOCYTES % (AUTO) 24.2 % (23-45); MEAN CORPUSCULAR HGB 28.9 UUG (26-34); MEAN CORPUSCULAR HGB CONC(MCHC 32.1 GM/DL (31-37); MEAN PLATELET VOLUME 9.6 UM3 (9.4-12.4); MONOCYTES # (AUTO) 0.4 T/MM3 (0-0.8); MONOCYTES % (AUTO) 5.2 % (0-9.0); NEUTROPHILS #(AUTO)-ABSOLUTE 5.2 T/MM3 (1.8-7.7); NEUTROPHILS % (AUTO) 66.2 % (33-66); RED BLOOD COUNT 3.39 M/MM3 (4.00-5.20); WBC - WHITE BLOOD COUNT 7.9 T/MM3 (4.5-11.0)
--- NOTE | 2017-02-26 15:08 | CONSPD ---
PEBBLES MOISE VEGETABLE WASHING MACHINE OPERATOR 02/26/17 1443: Consultation Info Date DATE: 02/26/17 TIME: 14:42 Date of Consultation: Feb 26, 2017 Attending Physician: PHYSICAL CHEMISTRY TEACHER - Dr. Richards Hospitalist - Dr. Gutierrez Reason for Consultation: Dyspnea HPI - Adult Date DATE: 02/26/17 TIME: 14:42 General Chief Complaint: Dyspnea History of Present Illness Cheryl Sosa is a 26-year-old woman who is 7 days post for a 38 week gestation little girl. This was her third , and she has had a history of hemorrhage requiring blood transfusion after her first one. A transfusion was recommended after her second , but she declined because she retained so much fluid after the first blood transfusion; plus she was eating very well and was not terribly symptomatic. During this , Dr. Richards reports pre-eclampsia, but she was not on an antihypertensive. The patient was discharged home on 02/21/17, and her last hemoglobin was 10.4 on 02/20. She was seen at the end of the week by Dr. Richards, and things have been going well. She has not been having any problems with her incision. On 02/23/17, she started to have some shortness of breath. She also started to have a little bit of a cough which was nonproductive. She has been sweaty, but each time she took her temperature, it has been normal. She remembered having some atelectatic changes during previous hospitalizations, so she tried doing some deep breathing. This was not effective in helping her dyspnea. She has been unable to lie down flat because of dyspnea, and she also developed chest pressure, which feels like a cinder block sitting on her chest. She also develops the same chest pressure after eating. She has noticed increased leg swelling to both legs. She has felt lightheaded, but denies syncope. She has some allergy type symptoms, but they are under fairly decent control. She also recalls having some chest pain the day after her , but this pain was attributed to a "gas bubble", because it resolved after medication. She presented to Dr. Richards's office for a follow-up on 02/26/17, but the patient was pale, diaphoretic and tachypneic. Dr. Richards contacted Dr. Gutierrez, and the patient was admitted to observation status for further evaluation. Past Medical History Past Medical History Patient's Medical History: (1) Seasonal allergies (2) hemorrhage (3) Preeclampsia (4) Palpitations Permanent Comment: Echocardiogram in 2009 showed an EF of 60%. Normal diastolic function and normal valves. Last Edited By: Pebbles Moise on Feb 15:05 Surgical History Patient's Surgical History: 3. Appendectomy. Current Medications Home Meds Active Scripts Ibuprofen (Ibuprofen) 800 Mg Tablet, 800 MG PO Q8H Y for PAIN, #30 TAB Prov:MASON RICHARDS MD 02/21/17 Hydrocodone/Acetaminophen ([place] 5-325 Tablet) 5-325 Tablet, 1-2 TAB PO Q4H Y for PAIN, #40 TAB Prov:MASON RICHARDS MD 02/21/17 Reported Medications Acetaminophen (Tylenol) 325 Mg Tablet, 1-2 TAB PO QID, #60 TAB 2 Refills 02/12/17 Pnv95/Ferrous Fumarate/FA ( Tablet) 1 Each Tablet, 1 TAB PO DAILY, TAB 02/11/17 Allergies: Coded Allergies: amoxicillin (Verified Allergy, Unknown, RASH, 02/26/17) Family History Family History: Maternal grandmother at age 42 of ovarian cancer Maternal grandfather had coronary artery disease. Mother is healthy. Father has coronary artery disease and hypertension. Paternal grandfather is , had coronary artery disease. No family history of DVT. Social History Smoking Status: Former smoker (used to smoke 1/2-1 pack per day. Quit about 7 years ago.) Does patient use chewing tobac: No Second Hand Exposure: No Substance Use Type: does not use Sexuality: male partner Household Members: spouse, family Advance Directives: No DPOA for Healthcare Only Review of Systems Constitutional: REPORTS: dizziness, fever, DENIES: appetite decrease, weakness Eyes Vision: DENIES: vision changes ENMT Sinuses: NOT FOUND: congestion, rhinorrhea Mouth/Throat: DENIES: sore throat Cardiovascular chest pain, dyspnea on exertion, see HPI Rhythm/Rate: palpitations (chronic, not worse than usual) Vascular: pedal edema Pulmonary Respiratory: cough, dyspnea, see HPI, DENIES: sputum GI Upper Abdomen: DENIES: pain, vomiting Lower Abdomen: DENIES: constipation, diarrhea General: DENIES: dysuria, frequency Musculoskeletal General: DENIES: joint pain Integumentary Skin: DENIES: rash Neurological General: DENIES: headache, syncope, weakness Psychiatric Psychiatric: anxiety, DENIES: depression Hematologic/Lymphatic anemia, DENIES: easy bruising Allergic/Immunological DENIES: frequent infections All Other Systems All Other Systems: Reviewed (remainder of 10-point ROS Neg.) Physical Exam General General Nourishment: well nourished, well developed, obese Vital Signs Vital Signs Date Time Temp Pulse Resp B/P Pulse Ox O2 Delivery O2 Flow Rate FiO2 02/26/17 14:26 98.4 56 26 137/87 98 Room Air Height (Feet): 5 Height (Inches): 2.00 Eyes Brief: FOUND: PERRL, other (pale conjunctivae), NOT FOUND: scleral icterus ENMT Brief: FOUND: mucosa moist, NOT FOUND: pharnyx erythema Neck Brief: FOUND: other (supple), NOT FOUND: adenopathy Respiratory Inspection: FOUND: increased effort (with conversational dyspnea), other ( shallow breaths), tachypnea Auscultation: FOUND: decreased (slightly decreased), normal, NOT FOUND: rales, rhonchi, wheezes Cardiovascular Auscultation: FOUND: S1, S2, extrasystoles, regular Peripheral Pulses: 2+: Dorasalis Pedis (L), Dorsalis Pedis (R), Posterior Tibial (L), Posterior Tibial (R), Radial (L), Radial (R) Edema: 0: Anasarca, Arm (L), Arm (R), Face Comments 2+ pedal edema bilaterally and 1+ pretibial edema bilaterally Abdomen Inspection: NOT FOUND: distention Palpation: FOUND: soft, NOT FOUND: McBurney's point tender, Ovalle's sign, involuntary guarding, rebound, tender, voluntary guarding Auscultation: FOUND: normo active Lymphatic (brief) Lymphatic Brief: NOT FOUND: adenopathy Integumentary (brief) Integumentary Brief: FOUND: dry, warm, NOT FOUND: pink (pale) Integumentary General: FOUND: dry, warm Color: FOUND: pink Neurologic (brief) Neurological Brief: FOUND: cranial 2-12 intact, motor Neurologic GCS Eye Opening: (4)Spontaneous GCS Verbal: (5)Oriented GCS Motor: (6)Obeys Commands RN Documented GCS Total: 15 Psychiatric (brief) FOUND: alert, attentive, normal affect, oriented Impression/Recommendation Problems: (1) Dyspnea Status: Acute (2) Preeclampsia Status: Resolved (3) Status post repeat low transverse section Status: Resolved Assessment & Plan: 02/19/17 - Dr. Richards Impression 26 -year-old G4, P3 woman 1 week post with dyspnea at rest and paroxysmal nocturnal dyspnea. Differentials include PE, cardiomyopathy/heart failure, pneumonia, profound anemia, and to a lesser extent, acute cholecystitis. Recommendation Agree with admission. Baseline labs have been ordered, including CBC, CMP, type and screen and lipase. Will check EKG as well. We'll obtain a CTA to rule out pulmonary embolus. I checked with the charge nurse from maternal child, who looked up breast-feeding properties of iohexol. Based on recommendations, less than 0.5% is excreted through breast milk, and it is probably safe to go ahead and breast-feed following administration of contrast. To be safe, is recommended to waste the pumped breast milk after CT scan. Hemodynamically she is stable. Hesitant to initiate IV fluids because of paroxysmal nocturnal dyspnea and bilateral pedal edema. Try a 1-time nebulized albuterol treatment to see if that relieves any of her symptoms. Pending the results of the CT, we may proceed with further evaluation such as echocardiogram. Discussed with Dr. Richards and with Dr. Gutierrez. Thank you for this consultation. We will follow Cheryl, along with you during her hospital course. MIRTHA GUTIERREZ MD 02/26/17 4980: Past Medical History Current Medications Home Meds Active Scripts Ibuprofen (Ibuprofen) 800 Mg Tablet, 800 MG PO Q8H Y for PAIN, #30 TAB Prov:MASON RICHARDS MD 02/21/17 Hydrocodone/Acetaminophen ([place] 5-325 Tablet) 5-325 Tablet, 1-2 TAB PO Q4H Y for PAIN, #40 TAB Prov:MASON RICHARDS MD 02/21/17 Reported Medications Acetaminophen (Tylenol) 325 Mg Tablet, 1-2 TAB PO QID, #60 TAB 2 Refills 02/12/17 Pnv95/Ferrous Fumarate/FA ( Tablet) 1 Each Tablet, 1 TAB PO DAILY, TAB 02/11/17 Allergies: Coded Allergies: amoxicillin (Verified Allergy, Unknown, RASH, 02/26/17) Impression/Recommendation Problems: (1) Preeclampsia Status: Resolved (2) Dyspnea Status: Acute (3) Status post repeat low transverse section Status: Resolved (4) Edema Impression I have independently evaluated and examined this patient. I reviewed the chart, the patient's history, and the VEGETABLE WASHING MACHINE OPERATOR's documented findings as above. We discussed and formulated the assessment and plan as above with additions as below: Real is one week post with increasing exertional and rest dyspnea. She describes pain increasing with inspiration and worsening with attempts to lie down such that she's been sleeping and essentially upright position. She has difficulty walking across a room and describes significant fluid retention which has not improved following delivery. She's had sweats as noted and has occasional palpitations which are unchanged from baseline. She doesn't think her weight is increased from discharge following delivery. She denied cough or sputum production, has chronic allergies with nasal congestion- also unchanged from baseline. On examination the patient is alert and cooperative. She appears dyspneic at rest and with speaking. Oxygenation was good. Breath sounds are diminished throughout without crackles or rhonchi, no wheezing appreciated. Cardiac rhythm regular and without appreciated murmur. +2 edema lower extremities. CTA reviewed by myself-heart borderline enlarged but no evidence of pulmonary edema or focal infiltrate on cuts, no obvious PE by my review nor is 1 reported by radiology. Echocardiogram pending but wall motion grossly normal by my review. EKG reviewed by myself demonstrating no acute ST-T wave abnormalities although low voltage present in the precordial leads Exertional dyspnea, female-initiate diuresis, clearly has residual volume overload. Await echo report to determine if valvular dysfunction or wall motion abnormalities present which may be contributing. Thank you for allowing us to participate in Mrs. Sosa's care. Recommendation Laboratory data reviewed, CTA reviewed by myself, echo reviewed. Discussed with Dr. Richards. PEBBLES MOISE APRN Feb 26, 2017 14:43 MIRTHA GUTIERREZ MD Feb 26, 2017 18:50
[2017-02-26 15:09] LABS: SQUAMOUS EPITHELIAL CELL,UR 0-5
[2017-02-26 15:10] LABS: BACTERIA,URINE NONE SEEN (NEGATIVE); RBC,URINE 0-1 /HPF (0-3); WBC,URINE NONE SEEN /HPF (0-5)
[2017-02-26 15:10] LABS: ALBUMIN 3.3 G/DL (3.5-5.0); ALBUMIN/GLOBULIN RATIO 1.1 RATIO (1.1-2.2); ALKALINE PHOSPHATASE 76 U/L (38-126); ALT (SGPT) 37 U/L (9-52); ANION GAP 12 MEQ/L (5-15); AST (SGOT) 23 U/L (14-36); BUN/CREATININE RATIO 23 RATIO (6-26); CALCIUM 8.8 MG/DL (8.4-10.2); CHLORIDE 108 MEQ/L (98-107); CO2 - CARBON DIOXIDE 22 MEQ/L (22-30); CREATININE 0.7 MG/DL (0.7-1.2); GLOMERULAR FILTRATION RATE 100; GLUCOSE 79 MG/DL (65-110); POTASSIUM 4.1 MEQ/L (3.6-5); SODIUM 142 MEQ/L (134-144); TOTAL PROTEIN 6.2 G/DL (6.3-8.2)
[2017-02-26] MEDS ORDERED: ALBUTEROL INH.SOLN. 2.5 MG/0.5 ML (0.5%) Neb. AEROSOL ONE (15:15)
--- NOTE | 2017-02-26 15:15 | NUR ---
UPDATE PT TO CT BY WHEELCHAIR
[2017-02-26 15:29] LABS: LIPASE 55 U/L (23-300)
--- NOTE | 2017-02-26 15:47 | DI ---
Indication: ITS.REASON: SOA PROCEDURE: CTA PULMONARY EMBOLI: Encounter: Initial Comparison: None Technique: Axial CT pulmonary angiographic phase images were performed through the chest after the administration of intravenous contrast. Coronal and Sagittal MIP reconstructed images were created and reviewed. Automated Exposure Control and Iterative Reconstruction dose reducing techniques were utilized. Contrast: Omnipaque 350 72 mL Findings: Pulmonary arteries: Exam is diagnostic to the subsegmental pulmonary arterial level. No filling defects identified to suggest a pulmonary embolus. Other findings: The lungs are clear. No consolidation, pleural effusion or pneumothorax. No pulmonary nodules or masses. The central airways are patent. No axillary or mediastinal adenopathy. Heart size is normal. No pericardial effusion. The upper abdomen shows no acute findings Impression: No pulmonary embolus or acute intrathoracic disease process seen. .
[2017-02-26 15:59] VITALS: PULSE 56; RESP 22; O2SAT 98
[2017-02-26 16:35] VITALS: O2SAT 100
[2017-02-26] MEDS ORDERED: FUROSEMIDE 20 MG/2 ML INJECTION IV ONE (18:45)
--- NOTE | 2017-02-26 18:53 | NUR ---
UPDATE PT CT SCAN RESULT WAS NEGATIVE FOR A BLOOD CLOT. PT WILL CONTINUE TO BE ON TELEMETRY AND IS NOW ON A REGULAR DIET. PT WAS ALSO PROVIDED WITH A BREAST PUMP AND IS CURRENTLY HOLDING . DENIES ANY CHEST PAIN AT THIS TIME OR SOA.
[2017-02-26 19:33] VITALS: BP 130/85; PULSE 64; RESP 16; TEMP 98.7; O2SAT 98
--- NOTE | 2017-02-26 21:48 | NUR ---
STATUS PT FEELING MUCH BETTER SINCE RECEIVING LASIX ABOUT 0. BREATHING UNLABORED AND DENIES SOA. IS ON ROOM AIR. PT UP AD LENI IN ROOM, WHEN IN BED FOR AWHILE, WILL REAPPLY SCD'S. IN ROOM WITH PT. PT WALKING AND SOOTHING BABY WHEN NEEDED.
--- NOTE | 2017-02-26 21:50 | NUR ---
Chart Check 24 hour chart check completed
[2017-02-26 22:47] VITALS: BP 131/82; PULSE 63; RESP 16; TEMP 98; O2SAT 95
[2017-02-27 06:11] LABS: ANION GAP 12 MEQ/L (5-15); BUN/CREATININE RATIO 18 RATIO (6-26); CALCIUM 8.8 MG/DL (8.4-10.2); CHLORIDE 105 MEQ/L (98-107); CO2 - CARBON DIOXIDE 24 MEQ/L (22-30); CREATININE 0.8 MG/DL (0.7-1.2); GLOMERULAR FILTRATION RATE 85; GLUCOSE 76 MG/DL (65-110); SODIUM 141 MEQ/L (134-144)
--- NOTE | 2017-02-27 07:00 | NUR ---
UPDATE PT IS SLEEPING WITH BABY AT THIS TIME, WILL CONTINUE TO MONITOR.
[2017-02-27 08:00] VITALS: BP 144/78; PULSE 64; RESP 18; TEMP 98.2; O2SAT 95
--- NOTE | 2017-02-27 08:43 | PNPDOC ---
CERTIFIED MASSAGE THERAPIST Progress Note Subjective Today's Date 02/27/17 Feeling much better with the breathing treatment and dose of Lasix. She reports large urine output. Swelling is getting better. No abdominal Sx. Objective Vitals Vital Signs Date Time Temp Pulse Resp B/P Pulse Ox O2 Delivery O2 Flow Rate FiO2 02/26/17 22:47 98.0 63 16 131/82 95 Room Air Urine Output: Good General: Alert and Oriented Respiratory: Non-labored Extremities: Non-tender Less edema than yesterday. 1+ Laboratory Item Value Date Time White Blood Count 7.9 T/MM3 02/26/17 1438 Hemoglobin 9.8 GM/DL L 02/26/17 1438 Platelet Count 379 T/MM3 # 02/26/17 1438 Creatinine 0.8 MG/DL 02/27/17 0434 Glucose Level 76 MG/DL 02/27/17 0434 Aspartate Amino Transf (AST/SGOT) 23 U/L 02/26/17 1438 Alanine Aminotransferase (ALT/SGPT) 37 U/L 02/26/17 1438 Troponin I < 0.012 ng/ml 02/26/17 1438 Urine Protein Negative 02/26/17 1447 (1) Fluid overload Assessment & Plan: Resolving with Lasix. From my perspective, I think she could be dismissed today if ok with hospitalist. Follow up with me in 1 week as scheduled. (2) Status post repeat low transverse section Assessment & Plan: POD 8. Routine care. (3) Dyspnea Assessment & Plan: Resolved with Lasix. MASON RICHARDS MD Feb 27, 2017 08:43
--- NOTE | 2017-02-27 14:37 | PNPDOC ---
Subjective Date DATE: 02/27/17 TIME: 14:30 Subjective Real reports feeling significantly improved today. She received single dose of Lasix yesterday evening and describes urinating frequently with large volumes yesterday evening. Edema has decreased and she is ambulating without dyspnea today. She denies pleuritic pain or palpitations and has had no lightheadedness. She reports she continues to void frequently but is no longer overflowing the hat. She denies wheezing today and has not needed any breathing treatments today. She denies dysuria. Objective Vital Signs Vital signs Vital Signs Date Time Temp Pulse Resp B/P Pulse Ox O2 Delivery O2 Flow Rate FiO2 02/27/17 08:00 98.2 64 18 144/78 95 Room Air I/O 1150/3050 weight down 1.6 kg overnight EXAM General-NAD, alert, fluent speech HEENT-conjunctiva clear, sclera anicteric Lungs-respirations nonlabored, good airflow, breath sounds clear, no wheezing present Cardiac-regular rhythm, S1-S2, no murmur or gallop noted Abd-soft, bowel sounds present, nontender Ext-+1 edema bilateral lower extremities-improved from yesterday Psych-calm, cooperative, pleasant Height (Feet): 5 Height (Inches): 2.00 Weight (Kilograms): 109.200 Laboratory Laboratory Laboratory Tests 02/26/17 14:38 02/27/17 04:34 Magnesium 2.0 Laboratory Tests 02/26/17 14:38 Assessment & Plan Problems: (1) Dyspnea Status: Acute (2) Edema (3) Preeclampsia Status: Resolved (4) Status post repeat low transverse section Status: Acute (5) Anemia affecting third Assessment Clinically improved with diuresis. Echocardiogram reviewed with Dr. Bazan- normal ventricular function, mild increased PA pressure and minor tricuspid regurgitation. Stable for discharge from my perspective with outpatient follow- up. Discussed with Dr. Sánchez. She reports he continues to diurese well without additional diuretics at this time and does not believe she needs any at discharge. Discharge order placed, will follow up with Dr. Sánchez as scheduled and Dr. Banejree as needed. Code Status Full Code Hospital Course Summary Disclaimer The hospital course summary below is not to be considered part of the above Progress Note. MIRTHA PLATT MD Feb 27, 2017 14:33
--- NOTE | 2017-02-27 15:10 | NUR ---
DISMISSAL UPDATE PT GIVEN DISMISSAL INSTRUCTIONS, PT STATED UNDERSTANDING. IV WAS DC'D. PT WAS HANDED FOLDER WITH DISMISSAL INSTRUCTIONS AND WAS WALKED OUT TO THE FRONT BY TESSA RODGERS.
--- NOTE | 2017-02-27 19:29 | ECHOF ---
DATE OF STUDY 02/26/2017 INDICATIONS Dyspnea, edema. TECHNICAL QUALITY Technically good 2D, M-mode, Doppler echocardiographic images were submitted for interpretation. FINDINGS 1. CARDIAC CHAMBERS: Left atrium is enlarged, measuring 4.9 cm. All other cardiac chambers are normal in size. RV size and contractility appear normal. Left ventricle measures 5.6 cm. Aortic root diameter is normal. 2. LEFT VENTRICLE: Wall thickness within upper-normal range, measuring 10 mm in septal wall, 10.9 mm in posterior wall. Wall motion analysis is normal. Systolic function is normal. EF 60%-65%. 3. VALVES: Aortic, mitral, tricuspid and pulmonary valve structure and motion appear normal. Normal valve excursion. 4. DOPPLER: Mild tricuspid regurgitation with estimated systolic PA pressure of 42 mmHg. [id number] pulmonary hypertension. Normal flow velocities throughout were measured. Aortic valve area 2.56 cm2. Peak flow velocity at the aortic valve 1.9 m/sec with a mean gradient of 7 mmHg. In addition, the flow velocity at the LVOT level is 1.37 m/sec. In addition, there is very mild mitral regurgitation and trivial whiff of aortic regurgitation present. 5. No evidence of pericardial effusion, intracardiac masses or demonstrable shunts. 6. Central venous pressure is estimated to be normal. IMPRESSION 1. Left atrial enlargement. 2. Normal LV systolic function. EF 65%. 3. Probably normal diastolic function. 4. Mild tricuspid regurgitation. 5. Mild pulmonary hypertension. 6. Normal central venous pressure. MTDD
== END 2017-02-27 15:10 | disposition home or self-care (01) ==
LOC: SRG 11:54
PROVIDERS: ADMIT Obstetrics & Gynecology; ATTEND Obstetrics & Gynecology
DX: O12.05 Gestational edema, complicating the puerperium (principal); O14.95 Unspecified pre-eclampsia, complicating the puerperium; R06.82 Tachypnea, not elsewhere classified; O90.81 Anemia of the puerperium; D64.9 Anemia, unspecified; O99.53 Diseases of the respiratory system complicating the puerperium; J30.2 Other seasonal allergic rhinitis; O99.345 Other mental disorders complicating the puerperium; F41.9 Anxiety disorder, unspecified; Z87.891 Personal history of nicotine dependence; Z79.1 Long term (current) use of non-steroidal anti-inflammatories (NSAID); Z79.899 Other long term (current) drug therapy
CPT/HCPCS: 36415; 71275; 80048; 80053; 81001; 83690; 83735; 84484; 85025; 86850; 86870; 86900; 86901; 93005; 93306; 94640; 96374; G0378; J1940; J7050; J7611; Q9967; 99218